=== PATIENT | male | born 2000 | race Asian ===

== ENCOUNTER 2021-10-24 06:45 | Day surgery (SDC) | payer OTHER ==
[~2021-10-24] VITALS: Ht 172.7 cm; Wt 52.6 kg
[2021-10-24 08:07] LABS: BASOPHILS # (AUTO) 0.1 K/uL (0.00-0.22); BASOPHILS % (AUTO) 0.6 % (0.0-2.0); EOSINOPHILS # (AUTO) 0.2 K/uL (0-0.4); EOSINOPHILS % (AUTO) 2.3 % (0.0-4.0); HEMATOCRIT 38.7 % (36-52); HEMOGLOBIN 13.2 g/dL (12.0-18.0); LYMPHOCYTES # (AUTO) 2.1 K/uL (2.0-11.5); LYMPHOCYTES % (AUTO) 19.6 % (20.5-51.1); MEAN CORPUSCULAR HEMOGLOBIN 32 pg (27-31); MEAN CORPUSCULAR HGB CONC 34 g/dL (33-37); MEAN CORPUSCULAR VOLUME 92.4 fL (80-94); MONOCYTES % (AUTO) 9.2 % (1.7-9.3); NEUTROPHILS # (AUTO) 7.2 K/uL (1.8-7.7); NEUTROPHILS % (AUTO) 68.3 % (42.2-75.2); PLATELET COUNT (AUTO) 169 K/uL (140-450); RED BLOOD CELL COUNT(AUTO) 4.19 MIL/uL (4.20-6.10); RED CELL DISTRIBUTION WIDTH 13.4 % (11.6-13.7); WHITE BLOOD COUNT (AUTO) 10.5 K/uL (4.5-11.0)
[2021-10-24] MEDS ORDERED: PROPOFOL 200 MG/20 ML VIAL IV ONE ×2 (08:18→09:58)
[2021-10-24 09:05] LABS: ALBUMIN 3.9 g/dL (3.4-5.0); CARBON DIOXIDE 29.4 mmol/L (21-32); CREATININE 0.7 mg/dL (0.6-1.3); POTASSIUM 3.4 mmol/L (3.5-5.1); TOTAL BILIRUBIN 0.5 mg/dL (0.0-1.0)
[2021-10-24] MEDS ORDERED: LABETALOL 20 MG/4 ML VIAL IVP PRN (09:54)
[2021-10-24] MEDS ORDERED: hydrALAZINE 20 MG/ML VIAL IVP PRN (09:54)
[2021-10-24] MEDS ORDERED: ONDANSETRON 4 MG/2 ML VIAL IVP PRN (09:55)
[2021-10-24] MEDS ORDERED: LACTATED RINGERS 1,000 ML IV SCH (09:55)
== END 2021-10-24 10:28 | disposition home or self-care (01) ==
LOC: MDS 06:45 → MMU 06:46 → MDS 10:28
PROVIDERS: ATTEND Internal Medicine Gastroenterology
DX: R10.13 Epigastric pain (principal); K72.90 Hepatic failure, unspecified without coma; K91.0 Vomiting following gastrointestinal surgery; K27.9 Peptic ulcer, site unspecified, unspecified as acute or chronic, without hemorrhage or perforation; F41.9 Anxiety disorder, unspecified; F32.9 Major depressive disorder, single episode, unspecified; F17.210 Nicotine dependence, cigarettes, uncomplicated; F12.988 Cannabis use, unspecified with other cannabis-induced disorder; Z79.899 Other long term (current) drug therapy
CPT/HCPCS: 36415; 43239; 80053; 85025; J2704